=== PATIENT | female | born 1980 | race Two or more races ===

== ENCOUNTER 2017-02-16 15:42 | Emergency (ER) | payer SELFPAY ==
[~2017-02-16] VITALS: Ht 165.1 cm; Wt 104.3 kg
[2017-02-16 15:53] VITALS: BP 140/88
== END 2017-02-16 20:35 | disposition left against medical advice (07) ==
LOC: ER 15:50
DX: R73.9 Hyperglycemia, unspecified (principal); Z53.21 Procedure and treatment not carried out due to patient leaving prior to being seen by health care provider